=== PATIENT | male | born 1970 | race Two or more races ===

== ENCOUNTER 2017-06-06 10:06 | Emergency (ER) | payer SELFPAY ==
[~2017-06-06] VITALS: Ht 167.6 cm; Wt 74.8 kg
--- NOTE | 2017-06-06 10:06 | NUR ---
[id number] C/O DIZZINESS WHILE DRIVING. [id number]
[2017-06-06] MEDS ORDERED: MECLIZINE HCL 25 MG TABLET ONE (10:16)
[2017-06-06 10:29] LABS: BASOPHILS % (AUTO) 0.4 % (0.0-2.0); EOSINOPHILS # (AUTO) 0.2 /CMM (0.0-0.7); HEMATOCRIT 49 % (39-51); HEMOGLOBIN 16.8 g/dL (13.5-17.5); LYMPHOCYTES # (AUTO) 2.3 /CMM (0.8-4.8); LYMPHOCYTES % (AUTO) 26.1 % (20.0-44.0); MEAN CORPUSCULAR HEMOGLOBIN 31 PG (26.0-33.0); MEAN CORPUSCULAR HGB CONC 34 g/dl (31.0-36.0); MEAN CORPUSCULAR VOLUME 90 fL (80-96); MONOCYTES # (AUTO) 0.5 /CMM (0.1-1.30); MONOCYTES % (AUTO) 5.8 % (2.0-12.0); NEUTROPHILS # (AUTO) 5.7 /CMM (1.8-8.9); NEUTROPHILS % (AUTO) 65.7 % (43.0-81.0); PLATELET COUNT (AUTO) 196 /CMM (150-450); RDW COEFFICIENT OF VARIATION 12.7 (11.5-15.0); RED BLOOD CELL COUNT(AUTO) 5.46 MIL/uL (4.5-6.0); WHITE BLOOD COUNT (AUTO) 8.7 K/uL (4.3-11.0)
[2017-06-06] MEDS ORDERED: MECLIZINE HCL 12.5 MG TABLET PO ONE (10:30)
[2017-06-06 10:38] LABS: CALCIUM, SERUM 9.4 mg/dL (8.5-10.1); CARBON DIOXIDE 30 mmol/L (21-32); CHLORIDE 101 mmol/L (98-107); CREATININE 0.9 mg/dL (0.6-1.3); GLUCOSE 105 mg/dL (74-106); POTASSIUM 3.9 mmol/L (3.5-5.1); SODIUM SERUM 137 mmol/L (136-145); UREA NITROGEN, BLOOD 12 mg/dL (7-18)
[2017-06-06 10:47] LABS: TROPONIN I < 0.017 ng/mL (0.00-0.056)
--- NOTE | 2017-06-06 11:42 | NUR ---
Patient discharged to home in stable condition. Written and verbal after care instructions given. Patient verbalizes understanding of instruction.
[2017-06-06 11:43] VITALS: BP 157/100
== END 2017-06-06 12:10 | disposition home or self-care (01) ==
LOC: ER 10:08
DX: R42 Dizziness and giddiness (principal); F10.10 Alcohol abuse, uncomplicated
CPT/HCPCS: 36415; 70450-TC; 80048-TC; 84484-TC; 85025-TC; A4606; J8597; Z7610